=== PATIENT | male | born 1995 | race Caucasian/White ===

== ENCOUNTER 2022-04-08 08:58 | Emergency (ER) | payer OTHER, SELFPAY ==
--- NOTE | ~2022-04-08 | XR_ITS ---
EXAMINATION: XR SHOULDER, LEFT CLINICAL INFORMATION: Status post reduction of left shoulder COMPARISON: X-rays earlier today TECHNIQUE: Three views of the left shoulder. FINDINGS: Interval reduction of the previously seen dislocation. Now seen is normal positioning of the humeral head with respect to the glenoid. No fracture seen. Acromioclavicular joint intact. Sternal wires, mediastinal clips, and 2-lead pacemaker again seen. XR/XR shoulder LT min 2V IMPRESSION: Satisfactory interval reduction of the previously seen shoulder dislocation.
--- NOTE | ~2022-04-08 | XR_ITS ---
EXAMINATION: XR SHOULDER, LEFT CLINICAL INFORMATION: Question dislocation COMPARISON: None TECHNIQUE: AP external rotation, Grashey, scapular Y, and axillary views of the left shoulder. FINDINGS: There is an anterior inferior dislocation of the left humerus from the glenoid. No fracture seen. Left acromioclavicular joint is intact. Sternal wires, mediastinal clips, and a 2-lead pacemaker are present. XR/XR shoulder LT min 2V IMPRESSION: Anterior inferior left shoulder dislocation.
[2022-04-08 09:42] VITALS: BP 136/76; PULSE 74; RESP 18; TEMP 36.6; O2SAT 98; BMI 20.3
--- NOTE | 2022-04-08 10:35 | ED.UPPEXIN ---
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 He reports that this happened approximately 8 months ago as well. He has a sling in place. He denies any recent falls or injuries or any paresthesias or any other complaints or concerns at this time. 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) Other Extremity Injury: left: shoulder Other injuries: none Place: home Severity: severe Severity scale (1-10): >10 Relieving factors: none Exacerbating factors: movement of extremity Context: other (Recurrent shoulder dislocations) Associated symptoms: denies other symptoms Treatments prior to arrival: other (Shoulder mobilizer that he came in with) Related Data Previous Rx's Medication Instructions Recorded acetaminophen 500 mg tablet 1,000 mg PO QID PRN fever or pain 04/08/22 (Tylenol Extra Strength) #14 tabs Allergies Allergy/AdvReac Type Severity Reaction Status Date / Time No Known Allergies Allergy Verified 04/08/22 10:26 Review of Systems Review of Systems: Constitutional : No Weight loss, No Fever, No Chills, No Night Sweats, No Fatigue, No Malaise ENT/Mouth : No Hearing loss, No Ear Pain, No Nasal Congestion, No Sinus Pain, No Hoarseness, No sore throat, No Rhinorrhea, No Swallowing Difficulty Eyes: No Eye Pain, No Swelling, No Redness, No Foreign Body, No Discharge, No Vision Changes Cardiovascular : No Chest Pain, No SOB, No Dyspnea on Exertion, No Orthopnea, No Edema, No Palpitations Respiratory : No Cough, No Sputum, No Wheezing, No Smoke Exposure, No Dyspnea Gastrointestinal : No Nausea, No Vomiting, No Diarrhea, No Constipation, No abdominal Pain, No Hematochezia, No Melena Genitourinary : no irregular bleeding, No Dysuria, No Urinary Frequency, No Hematuria, No Urinary Incontinence, No Urgency, No Flank Pain, No Urinary Flow Changes, No Hesitancy Musculoskeletal : + left shoulder joint pain, No Myalgias, No Joint Swelling Skin : No Skin Lesions, No rash Neuro : No Weakness, No Numbness, No Paresthesias, No Loss of Consciousness, No Dizziness, No Headache Psych : No Anxiety/Panic, No Depression, No SI/HI/AH/VH, No Social Issues, Heme/Lymph: No Bruising, No Bleeding,No Lymphadenopathy Endocrine : No Polyuria, No Polydipsia, No Temperature Intolerance Yes all other systems are reviewed and are negative [facility] Past Medical History Attestation statement: The following information was validated with the patient. Source: old records reviewed and nursing notes reviewed Physical Exam Vital Signs: Vital Signs: Last Vital Signs Temp 98 F 04/08/22 09:42 Pulse 74 04/08/22 09:42 Resp 18 04/08/22 09:42 BP 136/76 04/08/22 09:42 Pulse Ox 98 04/08/22 09:42 O2 Del Method 04/08/22 09:42 BMI result Body Mass Index 20.3 vital signs have been reviewed as normal and appeared to be correct. Blood pressure normal Heart rate normal. Respiration rate normal. Temperature normal. Oxygen saturation normal. Appearance: Alert. Oriented X3. No acute distress. Head: Normal external exam. Normocephalic. Atraumatic. Eyes: PERRLA. EOMI. Conjunctiva and sclera normal. Eyelids normal. ENT: Pharynx normal. Uvula midline. Moist mucous membranes. Neck: Normal inspection. Neck supple. FROM. CVS: Normal heart rate and rhythm. Respiratory: No respiratory distress. Painless inspiration. Skin: Skin warm and dry. Normal skin color. Normal skin turgor. No rashes/lesions/lacerations noted. Extremities: Patient holding his left arm and internal rotation flexed against his chest/abdomen with limited range of motion an obvious left anterior shoulder dislocation noted. No obvious ligamentous or tendon injury noted. Otherwise all other extremities exhibit normal range of motion nontender. Neuro: Oriented X 3. No motor deficit. No sensory deficit. Reflexes normal. Normal steady gait. No focal neuro deficits noted. Vascular: + radial pulses/+ 2 distal pedal pulses/+2 dorsalis pedis b/l. Normal cap refill. No cyanosis noted to upper extremity nails and lower extremity toes nails. Course Course Course Narrative: 26-year-old male with a past medical history of cardiac surgery with pacer due to valve dysfunction and recurrent shoulder dislocations to the left side presenting to the ED with complaints of atraumatic left shoulder pain he believes it might be dislocated after he woke up this morning and having severe pain to the left shoulder. He reports that this happened approximately 8 months ago as well. He has a sling in place. He denies any recent falls or injuries or any paresthesias or any other complaints or concerns at this time. Patient now status post anterior shoulder dislocation reduction myself and Dr. Ellis performed this. No complications. Patient tolerated procedure well. We perform scapular manipulation. Patient was placed in a shoulder immobilizer. Post reduction x-ray ordered. Will DC home and instructions return if any new or worsening symptoms follow-up with PCP/Orthopedics. Patient understands agrees with this plan. MDM - Extremity Injury (Upper) Medical Records Attestation: I reviewed the patient's medical records. Imaging Data Left shoulder x-ray: Attestation: I personally reviewed and interpreted this imaging study as follows: Radiologist's impression: FINDINGS: There is an anterior inferior dislocation of the left humerus from the glenoid. No fracture seen. Left acromioclavicular joint is intact. Sternal wires, mediastinal clips, and a 2-lead pacemaker are present. XR/XR shoulder LT min 2V IMPRESSION: Anterior inferior left shoulder dislocation. Status post reduction she left shoulder x-ray: Attestation: I personally reviewed and interpreted this imaging study as follows: Radiologist's impression: FINDINGS: Interval reduction of the previously seen dislocation. Now seen is normal positioning of the humeral head with respect to the glenoid. No fracture seen. Acromioclavicular joint intact. Sternal wires, mediastinal clips, and 2-lead pacemaker again seen.? XR/XR shoulder LT min 2V IMPRESSION: Satisfactory interval reduction of the previously seen shoulder dislocation. Critical Care Time Critical Care Time Critical Care Time: Yes Total Critical Care Time: 60 Attestation: I personally attest to this time spent taking care of the patient Discharge Plan Discharge Clinical Impression: Anterior dislocation of left shoulder Patient Disposition: Home, Self-Care Instructions: Shoulder Dislocation (ED), How to Use a Sling (ED) Prescriptions: New acetaminophen [Tylenol Extra Strength] 500 mg tablet 1,000 mg PO QID PRN (Reason: fever or pain) Qty: 14 0RF Referrals: Edilberto Jc MD [Physician] - 1 week (Call to make a follow-up appointment within the next 1-2 weeks) Stand Alone Forms: Work/School Release
== END 2022-04-08 11:44 | disposition home or self-care (01) ==
PROVIDERS: Emergency Provider Emergency Medicine
DX: S43.005A Unspecified dislocation of left shoulder joint, initial encounter (principal); G89.18 Other acute postprocedural pain; X58.XXXA Exposure to other specified factors, initial encounter; Y93.9 Activity, unspecified; Y92.9 Unspecified place or not applicable; Y99.9 Unspecified external cause status; Z79.899 Other long term (current) drug therapy
CPT/HCPCS: 73030; 99282; 99283